=== PATIENT | male | born 1985 | race Caucasian/White ===

== ENCOUNTER → 2021-04-07 08:53 | Outpatient (BNVA) | payer OTHER, SELFPAY | PROVIDERS: PCP Family Medicine; Referring Provider Family Medicine; Visit Provider Surgery | DX: L72.0 Epidermal cyst (principal) | CPT/HCPCS: 99202 ==

== ENCOUNTER 2021-04-26 07:44 | Outpatient (REF) | payer OTHER, SELFPAY ==
[2021-04-26 07:47] VITALS: BMI 25.7
[2021-04-26 07:49] VITALS: BP 120/79; PULSE 67; RESP 16; TEMP 36.3; O2SAT 100
[2021-04-26 08:15] VITALS: BP 128/71; PULSE 74; RESP 16; O2SAT 100
--- NOTE | 2021-04-26 08:26 | W.PM.OPN ---
Operative Note Operative Note Date of Service: 04/26/21 Narrative: Preop diagnosis: Right buttock cyst Postop diagnosis: Right buttock cyst Procedure: Excision of right buttock cyst under local anesthesia Surgeon: Brooks Dawkins Patient is a 35-year-old male with a cystic induration on the right buttock superiorly. This was lateral to the medial cleft. Initial exam in the office did not reveal any induration leading into the gluteal cleft at some would suggest a pilonidal cyst. I therefore told him that we may be able to remove this cyst under local anesthesia. He understood the technique of the procedure as well as the risks, benefits, and alternatives He was brought to the minor procedure room. He was placed in prone position. The area of the cyst was prepped and draped. Lidocaine 1% was used for local anesthesia. The cystic induration was about 1 cm in diameter. I made an elliptical incision around this using blade 15. And this carried down through the full-thickness of the skin subcutaneous fat to excise the entire indurated area. This was sent as a specimen. The incision was closed with full-thickness nylon 3-0 interrupted sutures. Dressings were applied. The procedure was completed. The patient tolerated procedure well. There were no complications noted. Estimated blood loss about 3 cc. He was given wound care instructions. He understood that if this occurs, this may suggest a pilonidal cyst and we may need to schedule him for another procedure.
== END 2021-04-26 07:45 | disposition home or self-care (01) ==
LOC: HO.MS 07:44
PROVIDERS: PCP Family Medicine; Visit Provider Surgery
PROC: (CPT 11402; principal; 2021-04-26 08:00)
DX: L72.0 Epidermal cyst (principal)
CPT/HCPCS: 11402; 88304

== ENCOUNTER 2021-04-30 13:56 | Outpatient (REF) | payer OTHER, SELFPAY ==
[2021-05-02 11:34] LABS: H Pylori Breath Test Negative (Negative)
== END 2021-04-30 13:57 | disposition home or self-care (01) ==
LOC: HO.LNP 13:56
PROVIDERS: PCP Family Medicine; Referring Provider Family Medicine; Visit Provider Nurse Practitioner Family
DX: K21.9 Gastro-esophageal reflux disease without esophagitis (principal)
CPT/HCPCS: 83013; 99202

== ENCOUNTER → 2021-05-06 09:05 | Outpatient (BNVA) | payer OTHER, SELFPAY | PROVIDERS: PCP Family Medicine; Visit Provider Surgery | DX: Z48.817 Encounter for surgical aftercare following surgery on the skin and subcutaneous tissue (principal); Z87.2 Personal history of diseases of the skin and subcutaneous tissue | CPT/HCPCS: 99212 ==

== ENCOUNTER 2021-06-21 11:46 | Day surgery (SDC) | payer OTHER, SELFPAY ==
[2021-06-21 11:50] VITALS: BMI 23.7
--- NOTE | 2021-06-21 11:50 | MHC.SHP ---
Pre-Procedural Eval Section A Date of Service: 06/21/21 The patient is an INPATIENT: No The History & Physical has been completed within 30 days and I have reviewed it.: No Section B Chief Complaint: reflux disease Relevant Family History (Specify if Yes): No Relevant Social History: None Present Medications: see Short Stay Collaborative assessment Medical History: Significant History (Epidermal cyst) Allergies: Allergies Allergy/AdvReac Type Severity Reaction Status Date / Time No Known Allergies Allergy Verified 05/06/21 09:12 Review of Systems Sugical H&P ROS: Negative: Constitution, Cardiovascular and Respiratory and Yes, Specify: Gastrointestinal (GERD) Exam Surgical H&P Exam: Normal: Heart, Normal: Lungs, Normal: Extremities and Normal: Abdomen Plan Diagnosis/Plan: Unchanged I have reviewed the history and physical and performed a pertinent physical examination on my patient. No changes have occurred unless specified.
--- NOTE | 2021-06-21 11:58 | HO.ANESPROP2 ---
[facility] Active Problems Active Problems: All Active Problems (Updated 05/13/21 @ 20:14 by Laura Hale [facility]) Epidermal cyst (Acute) GERD (gastroesophageal reflux disease) (Acute) Boil (Acute) Past Medical History Medical History Epidermal cyst Family History Family History Other Cancer of unknown origin Family history of problems with anesthesia: No Surgical History Surgical History No pertinent past surgical history History of Problems with Anesthesia: No Social History Social History Housing: House Patient Tobacco Use Status: Former Tobacco user Tobacco use type: Cigarette Use of substances other than those prescribed or required for medical reasons: No Are you DNR?: No Advance Directives: No Advance Directives Information Provided: Yes Recently lost weight without trying: No Nutrition Risks: No Nutritional Risk service: No Current occupational status: employed Current occupational exposures/hazards: No Cognitive needs: No Hearing needs: No Vision needs: No Meds Allergies Allergy/AdvReac Type Severity Reaction Status Date / Time No Known Allergies Allergy Verified 05/06/21 09:12 Active Medications: Current Medications Lactated Ringer's (Lr) 1,000 mls @ 50 mls/hr IVCONT .Q20H ZARA Exam Exam Date and Time: June 21, 2021 1158 Height,Weight and Vital Signs: Height 6 ft Weight 79.379 kg Airway Mallampati Class: II TM Dist: >3cm Neck ROM: Full Heart: rrr Lungs: cta Assessment and Plan Assessment Anesthesia Assessment: Anesthesia Plan Discussed and Chart Reviewed Final Anesthetic Review Family History of Problems with Anesthesia: No History of Problems with Anesthesia: No NPO: Yes ASA Class: II Final Preanesthetic Review: No Changes in Pt Med Stat, Meds/Allgs Chart Reviewed and Consent Obtained/Reviewed Patient Risk: Intermediate Procedure Risk: Intermediate Anesthetic Plan Anesthetic Plan: MAC: Disposition: Standard PACU
[2021-06-21 12:03] VITALS: BP 120/72; PULSE 63; RESP 16; TEMP 37.2; O2SAT 98
[2021-06-21] MEDS: Lactated Ringers 1,000 ML 50 ML IVCONT (12:15)
--- NOTE | 2021-06-21 12:38 | PM.OP ---
Brief Operative Note Date of Service: 06/21/21 Pre-op diagnosis: GERD, abdomial pain and bloating Post-op diagnosis: other (GERD, esopahgitis, hiatal hernia, gastritis) Procedure: FLEXIBLE TRANSORAL UPPER GASTROINTESTINAL ENDOSCOPY WITH BIOPSIES Consent: Indications for the procedure and potential complications of bleeding, perforation, reaction to medications and missed diagnosis were discussed with the patient and informed consent was obtained. Instrument: Olympus GIF H 190 mid size upper endoscope Monitoring: Vital signs and clinical assessment, continuous EKG monitoring, Pulse oximetry, Carbon Dioxide monitoring and blood pressure monitoring were done throughout the procedure. Procedure: The patient was placed in the left lateral decubitis position and pre-procedure medications were administered and a bite block was placed. The endoscope was inserted into the mouth and advanced under direct vision to the third part of duodenum. A careful inspection was made as the upper endoscope was withdrawn including a retroflexed examination of the proximal stomach; Findings and interventions are described below. Findings: Larynx: Normal Esophagus: GE junction at 38 cms, small hiatal hernia 38 to 40 cms. Two 1 cms healing erosions at the GE junction. Stomach: Moderate gastric erythema. Biopsies were obtained. Grade 2 flap valve on retroflexed examination of the cardia. Duodenum: Normal bulb and descending duodenum. Biopsies were obtained from 3rd part of the duodenum to check for celiac sprue. Intervention: Biopsies as noted above Impression and Post Procedure Diagnosis: Endoscopy Findings: ESOPHAGUS: GE junction at 38 cms, small hiatal hernia 38 to 40 cms. Two 1 cms healing erosions at the GE junction. STOMACH: Moderate gastritis DUODENUM: Normal - biopsied to check for celiac sprue. Plan: Await pathology results Patient has an appointment on 07/05/21 in the GI Clinic with Laura Hale FNP-BC. Above findings were reviewed with the patient and GERD and Hiatal Hernia handouts were given in the discharge area Pt reports improvement in heartburn with a change in diet and life style. He is not taking Pantoprazole any more Pt was advised a trail of Famotidine twice daily since he had mild esophagitis on EGD - prescription was sent to his preferred pharmacy. Surgeon: Macario Wise MD Anesthesia: MAC (Dr Montano) Was an Analyst Microbiology Lab used for this Procedure?: Yes Analyst Microbiology Lab: Brianna Sosa Estimated blood loss (mL): 0 Pathology: other (A. small bowel bxs, R/O celiac B. gastric antrum bxs, R/O H. pylori) Condition: stable Disposition: PACU
--- NOTE | 2021-06-21 12:45 | W.PM.OPN ---
Operative Note Operative Note Date of Service: 06/21/21 Narrative: Pre-op diagnosis: GERD, abdomial pain and bloating Post-op diagnosis:?other (GERD, esopahgitis, hiatal hernia, gastritis) Procedure: FLEXIBLE TRANSORAL UPPER GASTROINTESTINAL ENDOSCOPY WITH BIOPSIES Consent:?Indications for the procedure and potential complications of bleeding, perforation, reaction to medications and missed diagnosis were discussed with the patient and informed consent was obtained. Instrument:?Olympus GIF H 190 mid size upper endoscope Monitoring: Vital signs and clinical assessment, continuous EKG monitoring, Pulse oximetry, Carbon Dioxide monitoring and blood pressure monitoring were done throughout the procedure. Procedure:?The patient was placed in the left lateral decubitis position and pre-procedure medications were administered and a bite block was placed. The endoscope was inserted into the mouth and advanced under direct vision to the third part of duodenum. A careful inspection was made as the upper endoscope was withdrawn including a retroflexed examination of the proximal stomach; Findings and interventions are described below. Findings: Larynx:? Normal Esophagus: GE junction at 38 cms, small hiatal hernia 38 to 40 cms. Two 1 cms healing erosions at the GE junction. Stomach: Moderate gastric erythema. Biopsies were obtained. Grade 2 flap valve on retroflexed examination of the cardia. Duodenum: Normal bulb and descending duodenum.? Biopsies were obtained from 3rd part of the duodenum to check for celiac sprue. Intervention: Biopsies as noted above Impression and Post Procedure Diagnosis: Endoscopy Findings: ESOPHAGUS: GE junction at 38 cms, small hiatal hernia 38 to 40 cms. Two 1 cms healing erosions at the GE junction. STOMACH: Moderate gastritis DUODENUM: Normal - biopsied to check for celiac sprue. Plan: Await pathology results Patient has an appointment on 07/05/21 in the GI Clinic with Laura Hale FNP-BC. Above findings were reviewed with the patient and GERD and Hiatal Hernia handouts were given in the discharge area Pt reports improvement in heartburn with a change in diet and life style. He is not taking Pantoprazole any more Pt was advised a trail of Famotidine twice daily since he had mild esophagitis on EGD - prescription was sent to his preferred pharmacy Surgeon: Macario Wise MD Anesthesia:?MAC (Dr Montano) Was an Certified Athletic Trainer used for this Procedure?:?Yes Certified Athletic Trainer:?Brianna Sosa Estimated blood loss (mL):?0 Pathology:?other (A. small bowel bxs, R/O celiac? B. gastric antrum bxs, R/O H. pylori) Condition:?stable Disposition:?PACU
[2021-06-21 13:02] VITALS: BP 117/67; PULSE 71; RESP 16; TEMP 36.4; O2SAT 98
[2021-06-21 13:17] VITALS: BP 112/68; PULSE 73; RESP 16; TEMP 36.4; O2SAT 99
== END 2021-06-21 14:29 | disposition home or self-care (01) ==
PROVIDERS: PCP Family Medicine; Visit Provider Internal Medicine Gastroenterology
PROC: 0DJ08ZZ Inspection of Upper Intestinal Tract, Via Natural or Artificial Opening Endoscopic (ICD-10-PCS; CPT 43235; principal; 2021-06-21 12:50)
DX: K21.9 Gastro-esophageal reflux disease without esophagitis (principal); K29.50 Unspecified chronic gastritis without bleeding; K20.80 Other esophagitis without bleeding; K44.9 Diaphragmatic hernia without obstruction or gangrene; Z87.891 Personal history of nicotine dependence
CPT/HCPCS: 43239; 88305; 88342